=== PATIENT | female | born 1980 | race Caucasian/White ===

== ENCOUNTER 2018-11-12 10:00 | Inpatient (IN) | payer OTHER ==
[~2018-11-12] VITALS: Ht 157.5 cm; Wt 63.5 kg
[2018-11-12] MEDS ORDERED: NAPROXEN500 MG PO (13:56)
[2018-11-12] MEDS ORDERED: PNEU16DI2 (13:56)
[2018-11-12] MEDS ORDERED: FLEXERIL PO (13:56)
[2018-11-12] MEDS ORDERED: METHOTREXATE2.5 MG PO (13:57)
[2018-11-12] MEDS ORDERED: METROTEXATE PO (13:58)
[2018-11-12] MEDS ORDERED: RESTORA CAPSUL1 EACH PO (13:58)
[2018-11-12] MEDS ORDERED: ZANTAC300 MG PO (13:58)
[2018-11-19] MEDS ORDERED: CYCLOBENZAPRINE10 MG PO (11:26)
[2018-11-19] MEDS ORDERED: METHOTREXATE2.5 MG PO (11:27)
[2018-11-19] MEDS ORDERED: AMOX-CLAV 875-1 EACH PO (16:48)
[2018-11-19] MEDS ORDERED: PERCOCET 5-3251 EACH PO (16:48)
[2018-11-19] MEDS ORDERED: CLONAZEPAM0.5 MG PO (16:48)
[2018-11-19] MEDS ORDERED: GABAPENTIN800 MG PO (16:48)
[2018-11-19] MEDS ORDERED: DOCUSATE SODIU100 MG PO (16:48)
== END 2018-11-20 14:05 | disposition home or self-care (01) | DRG 455 ==
LOC: ADM 10:00 → SURG 11-19 05:52 → O/R 11-19 05:52 → CIR.AMB 11-19 10:00 → EDSTATUS 11-19 10:00 → SURH 11-19 10:00 → SURG 11-19 17:35
PROVIDERS: ADMIT Orthopaedic Surgery Orthopaedic Surgery of the Spine
PROC: 0SG0071 Fusion of Lumbar Vertebral Joint with Autologous Tissue Substitute, Posterior Approach, Posterior Column, Open Approach (ICD-10-PCS; 2018-11-19)
PROC: 0SG00AJ Fusion of Lumbar Vertebral Joint with Interbody Fusion Device, Posterior Approach, Anterior Column, Open Approach (ICD-10-PCS; 2018-11-19)
PROC: 0ST40ZZ Resection of Lumbosacral Disc, Open Approach (ICD-10-PCS; 2018-11-19)
PROC: 07DS0ZZ Extraction of Vertebral Bone Marrow, Open Approach (ICD-10-PCS; 2018-11-19)
PROC: 4A12X4Z Monitoring of Cardiac Electrical Activity, External Approach (ICD-10-PCS; 2018-11-19)
PROC: 0SG30A0 Fusion of Lumbosacral Joint with Interbody Fusion Device, Anterior Approach, Anterior Column, Open Approach (ICD-10-PCS; principal; 2018-11-19 15:15)
DX: M51.17 Intervertebral disc disorders with radiculopathy, lumbosacral region (principal); M51.16 Intervertebral disc disorders with radiculopathy, lumbar region; M79.7 Fibromyalgia; L40.8 Other psoriasis

== ENCOUNTER 2024-05-03 07:30 | Inpatient (IN) | payer OTHER ==
[~2024-05-03] VITALS: Ht 157.5 cm; Wt 81.6 kg
[~2024-05-03 07:30] MED LIST: AMOX-CLAV 875-1 EACH PO; CLONAZEPAM0.5 MG PO; CYCLOBENZAPRINE10 MG PO; DOCUSATE SODIU100 MG PO; FLEXERIL PO; GABAPENTIN800 MG PO; METHOTREXATE2.5 MG PO; METROTEXATE PO; NAPROXEN500 MG PO; PERCOCET 5-3251 EACH PO; PNEU16DI2; RESTORA CAPSUL1 EACH PO; ZANTAC300 MG PO
[2024-05-03 09:05] LABS: PH,URINE 5.5 (5.0-8.0); URINE APPEARANCE Clear; URINE BILIRRUBIN Negative (NEGATIVE); URINE BLOOD Negative; URINE COLOR Yellow; URINE GLUCOSE Negative (NEGATIVE); URINE KETONE Negative (NEGATIVE); URINE LEUKOCYTE Negative; URINE NITRATE Negative; URINE PROTEIN Negative (NEGATIVE); URINE UROBILINOGEN 0.2 E.U./dl
[2024-05-03 09:08] LABS: HEMATOCRIT 37.5 % (36.0-45.00); MEAN CELL VOLUME 85.2 fL (80.00-100.00); MEAN CORPUSCULAR HEMOGLOBIN 29.5 pg (27.00-32.0); MEAN CORPUSCULAR HGB CONC 34.6 g/dl (32.0-36.0); PLATELET COUNT 282 K/uL (150-450)
[2024-05-03 09:12] LABS: URINE BACTERIA 665.1 uL (0.0-1933); URINE EPITHELIAL CELLS 8.3 uL (0.0-38.8); URINE WBC 3.8 uL (0.0-23.2)
[2024-05-03 09:18] LABS: URINE CAST 0.15 uL (0.0-1.40); URINE RBC 1.2 uL (0.0-20.8)
[2024-05-03 09:30] LABS: PARTIAL THROMBOPLASTIN TIME 26.5 SECONDS (22.0-34.0); PROTHROMBIN TIME 10.9 SECONDS (9.0-11.5)
[2024-05-03 10:02] LABS: ALBUMIN 3.9 gm/dL (3.4-5.0); BILIRUBIN TOTAL 0.33 mg/dL (0.3-1.2); CALCIUM 9.2 mg/dL (8.5-10.1); CREATININE SERUM 0.66 mg/dL (0.55-1.02); GFR 97.74; GLOBULINA 3.6 G/DL (2.4-3.5); POTASSIUM 5.08 mEq/L (3.5-5.1); TOTAL PROTEIN 7.5 gm/dL (6.4-8.2)
[2024-05-08] MEDS ORDERED: DICLOFENAC POTA50 MG (07:36)
[2024-05-08] MEDS ORDERED: ATORVASTATIN CA20 MG (07:36)
[2024-05-08] MEDS ORDERED: ST. JOSEPH ASPI81 M2 (07:36)
[2024-05-08] MEDS ORDERED: ALENDRONATE SOD70 MG (07:36)
[2024-05-08] MEDS ORDERED: FAMOTIDINE40 MG (07:36)
[2024-05-08] MEDS ORDERED: POVIDONE-IODINE 118 ML BOTT TOP ONE (08:15)
[2024-05-08] MEDS ORDERED: CHLORHEXIDINE GLUCONATE 120 ML BOTTLE TOP ONE (08:15)
[2024-05-08] MEDS ORDERED: CEFAZOLIN SODIUM 1,000 MG VIAL IV ONE (08:15)
[2024-05-08] MEDS ORDERED: MORPHINE SULFATE 4 MG/ML VIAL IV ONE ×2 (09:55→10:25)
[2024-05-08] MEDS ORDERED: DEXTROSE 5 % AND 0.9 % NACL 1,000 ML IV PUSH SCH (10:45)
[2024-05-08] MEDS ORDERED: RINGERS SOLUTION,LACTATED 1,000 ML IV PUSH SCH (10:45)
[2024-05-08] MEDS ORDERED: PROMETHAZINE HCL 25 MG/ML AMPUL IM SCH (13:00)
[2024-05-08] MEDS ORDERED: MEPERIDINE HCL/PF 50 MG,MEPERIDINE HCL/PF 25 MG IM SCH (13:00)
[2024-05-08 16:10] VITALS: BP 99/63
[2024-05-08] MEDS ORDERED: ONDANSETRON HCL 2 MG/ML VIAL IV SCH (17:00)
[2024-05-08] MEDS ORDERED: CEFAZOLIN SODIUM 1,000 MG VIAL IV SCH (17:00)
[2024-05-08 20:05] VITALS: BP 100/50
[2024-05-09 01:09] VITALS: BP 91/55
[2024-05-09] MEDS ORDERED: OxyCODONE HCL/APAP UD (PERCOCET) PO SCH (06:00)
[2024-05-09] MEDS ORDERED: SIMETHICONE 125 MG CAPSULE PO SCH (09:00)
[2024-05-09 09:03] VITALS: BP 99/63
[2024-05-09 16:00] VITALS: BP 91/53
[2024-05-10 01:19] VITALS: BP 97/60
[2024-05-10 08:54] VITALS: BP 94/56
== END 2024-05-10 10:03 | disposition home or self-care (01) | DRG 743 ==
LOC: O/R 05-08 05:02 → OB/GYN 05-08 05:02 → SURH 05-08 07:00 → OB/GYN 05-08 11:47
PROVIDERS: ADMIT Obstetrics & Gynecology; ATTEND Obstetrics & Gynecology
PROC: 0UT60ZZ Resection of Left Fallopian Tube, Open Approach (ICD-10-PCS; 2024-05-08)
PROC: 0UT10ZZ Resection of Left Ovary, Open Approach (ICD-10-PCS; 2024-05-08)
PROC: 0TNB0ZZ Release Bladder, Open Approach (ICD-10-PCS; 2024-05-08)
PROC: 0DNW0ZZ Release Peritoneum, Open Approach (ICD-10-PCS; 2024-05-08)
PROC: 0UT90ZZ Resection of Uterus, Open Approach (ICD-10-PCS; principal; 2024-05-08 07:00)
DX: D25.9 Leiomyoma of uterus, unspecified (principal); N73.9 Female pelvic inflammatory disease, unspecified; Z20.822 Contact with and (suspected) exposure to COVID-19; N80.03 Adenomyosis of the uterus; N72 Inflammatory disease of cervix uteri; D27.1 Benign neoplasm of left ovary